=== PATIENT | female | born 1980 | race Caucasian/White ===

== ENCOUNTER 2018-02-06 00:35 | Emergency (ER) | payer OTHER ==
[~2018-02-06] VITALS: Ht 152.4 cm; Wt 84.0 kg
[2018-02-06] MEDS ORDERED: KETOROLAC 60MG/2ML VIAL IM ONE (05:15)
[2018-02-06 06:00] VITALS: BP 125/84
== END 2018-02-06 06:29 | disposition home or self-care (01) ==
LOC: ER 04:52
DX: S06.0X1A Concussion with loss of consciousness of 30 minutes or less, initial encounter (principal); W01.0XXA Fall on same level from slipping, tripping and stumbling without subsequent striking against object, initial encounter; Y93.89 Activity, other specified; Y92.89 Other specified places as the place of occurrence of the external cause; Y99.8 Other external cause status; Z90.49 Acquired absence of other specified parts of digestive tract
CPT/HCPCS: 70450; 81025; 96372; 99284; J1885